=== PATIENT | female | born 1985 | race Caucasian/White ===

== ENCOUNTER → 2019-10-10 | Day surgery (SDC) | payer OTHER ==
[~2019-10-10] VITALS: Ht 167.6 cm; Wt 71.5 kg
[~2019-10-10] MED LIST: BUPIVACAINE-EPI 0.25%-1:200000 MPF 30 ML VIAL. INJ ONE; DEXAMETHASONE SOD PHOS 4 MG/ML VIAL ONE; GLYCOPYRROLATE 1 MG/5 ML VIAL. ONE; HYDROmorphone 2 MG/ML VIAL IV PRN; IOHEXOL 300 MG/ML 50 ML VIAL. ONE; IV RINGERS,LACTATED 1000ML 1,000 ML IV SCH; KETAMINE HCL IN NACL, ISO-OSM 50 MG/5 ML SYRINGE ONE; KETOROLAC 30 MG/ML VIAL. ONE; LEVO75TA PO; LIDOCAINE 1% PF 2 ML VIAL. ID PRN; LIDOCAINE 2% PF 5 ML VIAL. ONE; LIOT5TAB11 PO; MIDAZOLAM HCL/PF 2 MG/2 ML VIAL. ONE; NEOSTIGMINE METHYLSULFATE 5 MG/5 ML SYRINGE. ONE; ONDANSETRON PF 4 MG/2 ML VIAL. IV PRN; ONDANSETRON PF 4 MG/2 ML VIAL. ONE; OXYC-325 PO; PREN1TAB60 PO; PROCHLORPERAZINE 10 MG/2 ML VIAL. IV PRN; PROPOFOL 20 ML IV ONE; ROCURONIUM 50 MG/5 ML VIAL. ONE; SEVOFLURANE 31 TO 60 MINUTES. IH ONE; SURGICEL HEMOSTAT 4X8 EACH. ONE; fentaNYL PF VIAL 100 MCG/2 ML VIAL IV PRN; fentaNYL PF VIAL 100 MCG/2 ML VIAL ONE; oxyCODONE/APAP 5/325 1 TAB TABLET PO ONE
--- NOTE | 2019-10-10 12:01 | PDOC4 ---
Operative Note Operative Note Date: 10/10/2019 Preoperative diagnosis: Biliary dyskinesia Postoperative diagnosis: Same Procedure: Laparoscopic cholecystectomy Surgeon: Pieter Specimen: Gallbladder Dictation: Patient is a 33-year-old female who has had right upper quadrant abdominal pain and abnormal HIDA scan. Procedure of laparoscopic cholecystectomy was explained to the patient detail risk benefits were also discussed including bleeding infection injury to intra-abdominal contents possibly necessitating further or open operations alternatives to this procedure also discussed with patient who seemed to understand and gave both verbal and written consent had the procedure performed. Patient was taken to the operating room placed in supine position general anesthesia was initiated once patient was sleep and intubated her abdomen was prepped and draped usual sterile fashion using ChloraPrep. An area just below the umbilicus was injected with quarter percent Marcaine with epinephrine incision was made [place] blade scalpel varies needle was placed within the abdomen creating pneumoperitoneum once this complete 11 mm port was placed and 5 mm camera was placed within the abdomen and inspected no other abnormalities were noted. A 5 mm port was placed in the epigastrium a 5 mm port was placed in the right lateral abdomen and a 5 mm port was placed in the right right mid abdomen all under direct visualization. The dome of the gallbladder is grasped retracted cephalad the infundibulum gallbladder extracted laterally the adherent tissues to the gallbladder were taken down bluntly dissection down to the triangle the cystic duct and cystic artery both visualized and doubly clipped and transected the gallbladder was taken off the liver with a hook electrocautery placed in Endo Catch bag and removed from the umbilicus right upper quadrant was irrigated and suctioned dry hemostasis was deemed to be appropriate and the pneumoperitoneum was reduced all ports removed the fascial defect at the umbilicus closed [id number] 0 Vicryl suture and the skin was approximated all port sites for septic and a Monocryl Mastisol Steri-Strips and island dressings were applied. Patient was awakened and bated operating room taken to recovery stable condition all sponge instrument needle counts listed as correct estimate blood loss 10 mL SANJU CHAMBERS MD Oct 10, 2019 12:00
--- NOTE | 2019-10-10 12:03 | DISCH ---
DISCHARGE INSTRUCTIONS Condition on Discharge Condition on Discharge: Stable Activity After Discharge Activity Instructions for Disc: Avoid exertion Other activity instructions: no lifting more than 20 pounds for 2 weeks Diet after Discharge Diet after Discharge: Low Fat Wound Incision Care Other wound/incision instructi: shower in 24 hours Contacting the DRS[facility]an after DC Call your doctor for: If your condition worsens Follow-Up Follow up with: Dr. Chambers in 2 weeks SANJU CHAMBERS MD Oct 10, 2019 12:03
[2019-10-10] MEDS: MORPHINE SULFATE 2 MG/ML VIAL. IV PRN ×2 (12:16→12:59)
[2019-10-10 13:35] VITALS: BP 108/59
--- NOTE | 2019-10-13 18:06 | PATHOLOGY ---
[facility] Accession Number: [id number] . 01 Material submitted: . gallbladder - GALLBLADDER AND CONTENTS . 01 Clinical history: . Biliary dyskinesia . 02 Diagnosis: Gallbladder, laparoscopic cholecystectomy: - Chronic cholecystitis, mild. - Reactive changes of gallbladder neck lymph node. (JPM:jeana; 10/13/2019) QMS 10/13/2019 1324 Local . 02 Comment: There are no calculi identified within the gallbladder lumen or specimen container. There is no evidence of malignancy. (JPM:jeana; 10/13/2019) . 02 Electronically signed: . Florencio Jack MD, Pathologist NPI- [id number] . 01 Gross description: . Received in formalin labeled "Kelsi Eddya, gallbladder and contents," is an intact, turgid gallbladder measuring 6.8 x 2.5 x 2.4 cm in greatest dimensions. The serosal surface is smooth to slightly disrupted, light green-smith to dusky blue-green and partially adipose-covered in appearance. A yellow-smith possible lymph node is noted near the infundibulum, measuring 0.7 x 0.5 x 0.3 cm. Opening the specimen reveals a granular, dark green mucosa measuring 0.1 cm in thickness, with an average gallbladder wall thickness of 0.1 cm. Sectioning through the fundal aspect reveals slightly edematous cut surfaces, with a small amount of dark green possible bile underlying the mucosa. No polyps or nodules are identified grossly. Calculi are not present within the specimen or specimen container. Sales Office Manager sections of the infundibulum, body and fundus are submitted in cassette A1. The possible lymph node is bisected and submitted entirely in cassette A2. (DAC; 10/11/2019) XDC/XDC 10/13/2019 [facility] . 02 Pathologist provided ICD-10: K81.1 . 02 CPT . 102814 Specimen Comment: A courtesy copy of this report has been sent to [phone] Specimen Comment: Report sent to Performed at: [address] [facility] [address], [place] [id number] MD Greg Rodriguez MD Phone: [phone] Performed at: 02 [facility] [address] [place] [id number] MD Florencio Jack MD Phone: [phone]
== END ==
LOC: SURG 09:50
PROVIDERS: ATTEND Surgery
DX: K82.8 Other specified diseases of gallbladder (principal); K81.1 Chronic cholecystitis; R59.9 Enlarged lymph nodes, unspecified; E03.9 Hypothyroidism, unspecified
CPT/HCPCS: 47562; 81025; A7015; J0690; J0780; J1100; J1885; J2001; J2250; J2270; J2405; J2704; J2710; J3010; J3490; J7030; Q9967